=== PATIENT | female | born 1945 | race African-American/Black ===

== ENCOUNTER 2019-03-23 09:22 | Emergency (ER) | payer OTHER, BC ==
[2019-03-23 09:45] VITALS: BP 150/75; PULSE 90; TEMP 98.4; BMI 26.4
--- NOTE | 2019-03-23 10:49 | PDOC ---
History of Present Illness <Allison Weeks - Last Filed: 03/23/19 10:59> - General History Source: Patient - History of Present Illness Timing/Duration: reports: intermittent Quality: reports: mild <Grupo Raygoza - Last Filed: 03/23/19 12:34> - General Stated Complaint: HEADACHE/WEAKNESS Time Seen by Provider: 03/23/19 10:09 Past History <Allison Weeks - Last Filed: 03/23/19 10:59> - Past Medical History Anemia: Yes COPD: No - Suicide/Smoking/Psychosocial Hx Smoking History: Smoker current status UNK <Grupo Raygoza - Last Filed: 03/23/19 12:34> - Past Medical History Allergies/Adverse Reactions: Allergies Allergy/AdvReac Type Severity Reaction Status Date / Time Penicillins Allergy Verified 03/23/19 09:41 aspirin AdvReac Verified 03/23/19 09:41 Home Medications: Ambulatory Orders Amlodipine Besylate [Norvasc -] 10 mg PO DAILY 03/23/19 Review of Systems - Review of Systems Constitutional: No: Chills, Fever, Malaise, Weakness ABD/GI: Yes: Blood Streaked Bowels, Diarrhea. No: Nausea, Vomiting, Tarry Stools : No: Dysuria <Grupo Raygoza - Last Filed: 03/23/19 12:34> *Physical Exam - Vital Signs Last Vital Signs Temp Pulse Resp BP Pulse Ox 98.4 F 90 18 150/75 99 03/23/19 09:43 03/23/19 09:43 03/23/19 09:43 03/23/19 09:43 03/23/19 09:43 <Allison Weeks - Last Filed: 03/23/19 10:59> - Vital Signs Last Vital Signs Temp Pulse Resp BP Pulse Ox 98.4 F 90 18 150/75 99 03/23/19 09:43 03/23/19 09:43 03/23/19 09:43 03/23/19 09:43 03/23/19 09:43 - Physical Exam General Appearance: Yes: Apparent Distress. No: Appropriately Dressed HEENT: positive: Normal Voice Neck: positive: Supple Respiratory/Chest: negative: Respiratory Distress Gastrointestinal/Abdominal: positive: Normal Bowel Sounds, Soft. negative: Tender, Distended, Guarding, Rebound Musculoskeletal: negative: CVA Tenderness Integumentary: positive: Dry, Warm Neurologic: positive: Fully Oriented, Alert, Normal Mood/Affect <Grupo Raygoza - Last Filed: 03/23/19 12:34> ED Treatment Course - LABORATORY CBC & Chemistry Diagram: 03/23/19 11:20 03/23/19 11:20 <Grupo Raygoza Last Filed: 03/23/19 12:34> Medical Decision Making - Medical Decision Making The patient was seen and evaluated in conjunction with midlevel provider under my direct supervision, ancillary studies were reviewed. I agree with the plan as outlined LUBNA Raygoza. HPI, workup/dispo as outlined. VS reviewed, wnl. 03/23/19 11:00 <Allison Weeks - Last Filed: 03/23/19 10:59> - Medical Decision Making 03/23/19 10:40 73 yo, h/o HTN, diverticulosis, on iron for anemia, here w/ intermittent, achy lower abd pain x 3 days that has since resolved. Had 1 e/o diarrhea this am and noticed "a little blood" so decided to come to ED. States she has intermittent bright red blood in her stool which she attributes to her diverticulosis, and states she usually notices it when "I have a virus" per pt. No melena, constipation, nausea, vomiting, fever, chills or dysuria. No sick contacts, recent travel or abx use See exam Intermittent BRBPR Has same w/ 1 e/o diarrhea this am No abd pain at this time and no dizziness/weakness, f/c H/o diverticulosis and anemia on iron Pt well jimbo and stable w/ benign abd -labs -reassess 03/23/19 12:24 Hgb 9.4, baseline 10 per pt. Abd remains benign on rpt exam and remains well jimbo throughout ED visit. Pt now informs me that she has GI appt next week. Strict return precautions given <Grupo Raygoza Last Filed: 03/23/19 12:34> *DC/Admit/Observation/Transfer <Allison Weeks - Last Filed: 03/23/19 10:59> <Grupo Raygoza - Last Filed: 03/23/19 12:34> Diagnosis at time of Disposition: BRBPR (bright red blood per rectum) - Discharge Dispostion Disposition: HOME Condition at time of disposition: Stable - Patient Instructions Printed Discharge Instructions: Diarrhea, DI for Diverticulosis Additional Instructions: Your hemoglobin was 9.4 today. Continue to take your iron and follow-up with your program manager in 1 week as already scheduled If symptoms worsen, return to ED
[2019-03-23 11:52] LABS: BASO % 0.7 % (0-2.0); EOS % 0.5 % (0-4.5); HEMATOCRIT 29.7 % (32.4-45.2); HEMOGLOBIN 9.4 GM/dL (10.7-15.3); LYMPH % 15.8 % (8-40); MCH 29.5 pg (25.7-33.7); MCHC 31.7 g/dl (32.0-36.0); MEAN PLT VOLUME 7.8 fl (7.5-11.1); MONO % 5.1 % (3.8-10.2); NEUT % 77.9 % (42.8-82.8); PLATELET COUNT 256 K/MM3 (134-434); RBC 3.19 M/mm3 (3.60-5.2); WHITE BLOOD COUNT 6.3 K/mm3 (4.0-10.0)
[2019-03-23 11:54] LABS: PH,URINE 5.5 (5.0-8.0); URINE APPEARANCE CLEAR; URINE BILIRUBIN NEGATIVE (NEGATIVE); URINE COLOR YELLOW; URINE GLUCOSE (UA) NEGATIVE (NEGATIVE); URINE KETONE NEGATIVE (NEGATIVE); URINE LEUK ESTERASE TRACE (NEGATIVE); URINE NITRITE NEGATIVE (NEGATIVE); URINE PROTEIN NEGATIVE (NEGATIVE); URINE UROBILINOGEN 0.2 mg/dL (0.2-1.0)
[2019-03-23 12:19] LABS: ALBUMIN 3.3 g/dl (3.4-5.0); BILIRUBIN,TOTAL 0.4 mg/dL (0.2-1); CALCIUM 8.9 mg/dL (8.5-10.1); CREATININE 0.8 mg/dL (0.55-1.3); TOT PROT 6.8 g/dl (6.4-8.2)
[2019-03-23 12:26] LABS: EPI CELLS 0.5 /HPF (0-5/HPF); URINE BACTERIA 1.4 /hpf (NEGATIVE); URINE RBC 0.6 /hpf (0-4); URINE WBC 3.3 /hpf (0-5)
== END 2019-03-23 12:35 | disposition home or self-care (01) ==
LOC: MERGE 09:22 → JER 09:22
DX: K62.5 Hemorrhage of anus and rectum (principal); I10 Essential (primary) hypertension; D64.9 Anemia, unspecified; Z87.19 Personal history of other diseases of the digestive system
CPT/HCPCS: 36415; 80053; 81003; 83690; 85025; 99282-25

== ENCOUNTER 2019-03-24 12:00 | Inpatient (IN) | payer OTHER, BC | END 2019-03-28 18:40 | disposition home or self-care (01) | LOC: JER 12:00 → JERBED 18:04 → J5S 19:57 ==

== ENCOUNTER 2019-11-15 17:30 | Emergency (ER) | payer OTHER, BC ==
[2019-11-15 17:35] VITALS: BP 163/74; PULSE 88; TEMP 97; BMI 28.3
--- NOTE | 2019-11-15 18:28 | PDOC ---
History of Present Illness - General Chief Complaint: Injury Stated Complaint: FALL FINGER INJURY Time Seen by Provider: 11/15/19 17:38 - History of Present Illness Initial Comments: 11/15/19 18:26 74-year-old female presents after a fall complaining of right second third and fourth finger pain Past History - Past Medical History Allergies/Adverse Reactions: Allergies Allergy/AdvReac Type Severity Reaction Status Date / Time aspirin Allergy Verified 11/15/19 17:35 NSAIDS (Non-Steroidal Allergy Verified 11/15/19 17:35 Anti-Inflamma Penicillins Allergy Verified 11/15/19 17:35 IV dye Allergy Uncoded 11/15/19 17:35 Home Medications: Ambulatory Orders Folic Acid/Multivit-Min/Lutein [Centrum Silver Chewable Tablet] 1 tab PO DAILY 06/03/14 Amlodipine Besylate [Norvasc -] 10 mg PO DAILY 03/23/19 Amlodipine Besylate [Norvasc -] 10 mg PO DAILY 03/24/19 Ferrous Fumarate/Ascorbic Acid [Lilia-Sequels 65-25 mg Caplet] 1 each PO DAILY # 30 tablet.er 03/28/19 Polyethylene Glycol 3350 [Miralax 119 gm Btl -] 17 gm PO DAILY #7 bottle Anemia: Yes Asthma: No Cancer: No Cardiac Disorders: No CVA: No COPD: No CHF: No Dementia: No Diabetes: No GI Disorders: Yes (universal diverticulosis,2 diminutive polyps,hiatal hernia) Disorders: No HTN: Yes Hypercholesterolemia: No Liver Disease: No Seizures: No Thyroid Disease: No - Surgical History Abdominal Surgery: No Appendectomy: No Cardiac Surgery: No Cholecystectomy: No Lung Surgery: No Neurologic Surgery: No Orthopedic Surgery: No - Immunization History Immunization Up to Date: Yes - Psycho Social/Smoking Cessation Hx Smoking Status: No Smoking History: Never smoked Have you smoked in the past 12 months: No Number of Cigarettes Smoked Daily: 0 Hx Alcohol Use: No Drug/Substance Use Hx: No Substance Use Type: None Hx Substance Use Treatment: No Review of Systems - Review of Systems Musculoskeletal: Yes: Joint Pain *Physical Exam - Vital Signs Last Vital Signs Temp Pulse Resp BP Pulse Ox 97 F L 88 18 163/74 100 11/15/19 17:32 11/15/19 17:32 11/15/19 17:32 11/15/19 17:32 11/15/19 17:32 - Physical Exam 11/15/19 18:26 Superficial abrasions at the dorsal aspect of the right second third and fourth fingers. Greatest area of tenderness is over the DIPJ of the fourth finger. No active extension at the DIPJ. All of the fingers appear neurovascularly intact without gross sensorimotor deficits ED Treatment Course - RADIOLOGY Radiology Studies Ordered: Category Date Time Status FINGER(S) RIGHT [RAD] Stat Radiology 11/15/19 17:52 Taken Medical Decision Making - Medical Decision Making 11/15/19 18:27 There is a fracture at the dorsum of the distal phalanx of the fourth finger at the base. This is a mallet fracture extension splint applied patient encouraged to follow-up with hand surgery instructions given on splint care and leaving the splint on 24 hours a day with hygiene precautions and instructions for coming out of the splint Discharge - Discharge Information Problems reviewed: Yes Clinical Impression/Diagnosis: Mallet finger Condition: Stable Disposition: HOME - Admission No - Follow up/Referral Referrals: Mihai Britt MD [Primary Care Provider] - Danish Peraza MD [Staff Physician] - - Patient Discharge Instructions Additional Instructions: Please leave the splint on 24 hours a day. You may remove the splint as we discussed in the examination room never taking the finger off a flat surface. Return to the emergency room for further issues and without fail follow-up with hand surgery in 2 to 3 days for further evaluation and treatment options. - Post Discharge Activity
== END 2019-11-15 18:34 | disposition home or self-care (01) ==
LOC: JERFT 17:30
PROC: 2W3JX1Z Immobilization of Right Finger using Splint (ICD-10-PCS; principal; 2019-11-15)
DX: M20.011 Mallet finger of right finger(s) (principal); W19.XXXA Unspecified fall, initial encounter; Y93.89 Activity, other specified; Y92.89 Other specified places as the place of occurrence of the external cause; Y99.8 Other external cause status; Z88.6 Allergy status to analgesic agent; Z88.0 Allergy status to penicillin; Z91.041 Radiographic dye allergy status; I10 Essential (primary) hypertension; D64.9 Anemia, unspecified; Z87.19 Personal history of other diseases of the digestive system
CPT/HCPCS: 29130; 73140-TC-RT-FY; 99281-25